=== PATIENT | male | born 1980 | race African-American/Black ===

== ENCOUNTER 2016-10-26 15:58 | Inpatient (IN) | payer OTHER ==
[~2016-10-26] VITALS: Ht 167.6 cm; Wt 65.1 kg
[2016-10-26] MEDS ORDERED: CLINDAMYCIN IV 900 MG in DEXTROSE 5% ADD-VANTAGE 100ML 100 ML IV ONE (16:30)
[2016-10-26] MEDS ORDERED: OPTIRAY 320 IV PRN (16:30)
[2016-10-26] MEDS ORDERED: DOCU100C31 PO (17:04)
[2016-10-26] MEDS ORDERED: NORT50CA PO (17:05)
[2016-10-26 17:34] LABS: BUN/CREATININE RATIO 8.9 (10-20); CALCIUM 9.4 mg/dl (8.5-10.1); POTASSIUM 3.6 mmol/L (3.5-5.1)
[2016-10-26 17:35] LABS: BASO % 0.4 %; BASO ABS # 0.03 K/uL (0-0.2); COMPLETE YES; EOS % 2.8 %; HEMATOCRIT 45.3 % (42-52); IG% 0.1 %; LYMPH % 20.8 %; LYMPH ABS # 1.66 K/uL (1.2-3.4); MEAN CELL VOLUME 85.6 fL (80-100); MEAN CORPUSCULAR HEMOGLOBIN 30.8 pg (25-34); MEAN PLATELET VOLUME 9.6 fL (7.4-10.4); MONO % 7.8 %; NEUT % 68.1 %; PLATELET COUNT 179 K/uL (130-400); RED BLOOD COUNT 5.29 M/uL (4.7-6.1); WHITE BLOOD COUNT 7.99 K/uL (4.8-10.8)
[2016-10-26] MEDS ORDERED: MoRPHine SULFATE 4 MG/ML 1 ML CARP\\VIAL IV STA (18:24)
--- NOTE | 2016-10-26 18:48 | DIAGNOSTIC IMAGING REPORT ---
CT OF THE NECK WITH CONTRAST CT DOSE: 423.66 mGy.cm CLINICAL HISTORY: Mass of the left jaw/floor of mouth. TECHNIQUE: Axial images of the neck were obtained following intravenous injection of 106 cc of Optiray 320 IV. COMPARISON STUDY: None. FINDINGS: Visualized portions of the intracranial contents are unremarkable. Orbits are within normal limits. There is minimal mucosal thickening of the ethmoid sinuses. Mastoid air cells are clear. There is no fluid within the middle ears. The epiglottis is normal. Airway is patent. There is extensive left inferior facial soft tissue swelling and edema, greater on the left. There is skin thickening. Note is made of a 1.6 x 1.3 cm subcutaneous rim-enhancing fluid collection located inferior to the left aspect of the mandible, within the left lower face. A few mildly enlarged submental lymph nodes are noted. No additional fluid collections are identified on this exam. Lung apices are clear. Major vasculature of the neck is patent. There is no soft tissue gas. Incidental note is made of a partially visualized aberrant right subclavian artery. IMPRESSION: 1. Extensive left inferior facial/floor of mouth infiltration with an associated 1.6 x 1.3 cm subcutaneous rim-enhancing fluid collection located inferior to the left aspect of the mandible. This suggests extensive cellulitis with a small associated subcutaneous abscess. The appearance strongly favors an infectious etiology. A necrotic mass could appear similar although is considered less likely. Clinical follow up to ensure resolution following treatment is recommended. 2. Several mildly enlarged submental lymph nodes which are likely reactive. Electronically signed by: Calvin Grijalva M.D. 10/26/2016 6:46 PM Dictated Date/Time: 10/26/2016 6:37 PM
[2016-10-26] MEDS ORDERED: LIDOCAINE/EPINEPHRINE 1% 20 ML VIAL INFIL ONE (20:00)
[2016-10-26] MEDS ORDERED: ONDANSETRON INJ 2 MG/ML 2 ML VIAL IV PRN (20:00)
[2016-10-26] MEDS ORDERED: ALUMINUM/MAGNESIUM/SIMETH (MAALOX MAX) 30 ML UDC PO PRN (20:00)
[2016-10-26] MEDS ORDERED: POLYETHYLENE (MIRALAX) 17 GM PACK PO PRN (20:00)
[2016-10-26] MEDS ORDERED: MAGNESIUM HYDROXIDE SUSP 30 ML UDC PO PRN (20:00)
[2016-10-26] MEDS ORDERED: ZOLPIDEM TARTRATE 5 MG TAB PO PRN (20:00)
[2016-10-26] MEDS ORDERED: ACETAMINOPHEN 325 MG TAB PO PRN (20:00)
[2016-10-26] MEDS ORDERED: TRAMADOL HCL 50 MG TAB PO PRN (20:00)
--- NOTE | 2016-10-26 20:34 | History and Physical ---
History & Physical Date & Time of Service: Oct 26, 2016 at 20:13 Chief Complaint: Edema To The Back Of Head, Jaw Primary Care Physician: Serenity LLANES History of Present Illness 37 y/o M who denies any active medical issues aside from depression, presents for a correction facility with complaints of L sided facial pain. He had a small pimple on the lower L side of his face a few days prior. He developed gradual swelling of his lower jaw, and the L side of his neck. A CT was obtained on arrival to the ER which was significant for extensive facial floor cellulitis with a small associated abscess. He does not currently report fevers or rigors. He denies recent dental carries, fevers or rigors. He has not been able to sleep well as he has a hard time putting his head down without significant pain. Past Medical/Surgical History Depression Family History Father with DM - both parents otherwise alive and well Social History Incarcerated - denies smoking/drinking, drug use. Smoking Status: Never Smoker Allergies Uncoded Allergies: SULFA DRUGS (Allergy, Unknown, UNKNOWN, 10/26/16) Home Medications Scheduled Docusate Sodium (Docusate Sodium), 1 CAP PO HS Nortriptyline (Pamelor), 50 MG PO HS Review of Systems Constitutional: No chills, No fever, No sweats, No weakness Eyes: No eye pain, No worsening of vision ENT: + problem reported (Facial pain as above), No hearing loss, No nasal symptoms, No unusual epistaxis Respiratory: No cough, No sputum, No wheezing Cardiovascular: No PND, No chest pain, No orthopnea Abdomen: No nausea, No vomiting Musculoskeletal: No joint pain Genitourinary - Male: No dysuria, No hematuria Neurologic: No memory loss, No paralysis, No weakness Psychiatric: No anhedonism, No depression symptoms Endocrine: No excessive thirst, No fatigue Hematologic / Lymphatic: No abnormal bleeding/bruising, No clotting problems Integumentary: No rash Allergic / Immunologic: No environmental allergies Physical Exam Vital Signs Date Time Temp Pulse Resp B/P Pulse Ox O2 Delivery O2 Flow Rate FiO2 10/26/16 19:45 80 18 130/87 98 Room Air 10/26/16 18:00 92 16 122/85 97 Room Air 10/26/16 16:01 36.7 100 18 124/86 100 Room Air General Appearance: WD/WN, no apparent distress Head: normocephalic Eyes: normal inspection, PERRL, EOMI ENT: normal ENT inspection, pharynx normal Neck: supple, thyroid normal, no JVD, + adenopathy present, + pertinent finding (Tenderness to palpation on L) Respiratory/Chest: chest non-tender, lungs clear, normal breath sounds, no respiratory distress, no accessory muscle use Cardiovascular: regular rate, rhythm, no edema, no gallop, no JVD, no murmur, normal peripheral pulses Abdomen/GI: normal bowel sounds, non tender, soft Back: normal inspection, no CVA tenderness, no muscle spasm Extremities/Musculoskelatal: normal inspection, no calf tenderness, normal capillary refill, no pedal edema, normal range of motion 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, no motor/sensory deficits, alert, normal mood/affect, normal reflexes, oriented x 3, + abnormal cerebellar tests Skin: + pertinent finding (Erythema over L face) Diagnostics Laboratory Results Results Past 24 Hours Test 10/26/16 16:55 10/26/16 17:00 Range/Units White Blood Count 7.99 4.8-10.8 K/uL Red Blood Count 5.29 4.7-6.1 M/uL Hemoglobin 16.3 14.0-18.0 g/dL Hematocrit 45.3 42-52 % Mean Corpuscular Volume 85.6 80-100 fL Mean Corpuscular Hemoglobin 30.8 25-34 pg Mean Corpuscular Hemoglobin Concent 36.0 32-36 g/dl Platelet Count 179 130-400 K/uL Mean Platelet Volume 9.6 7.4-10.4 fL Neutrophils (%) (Auto) 68.1 % Lymphocytes (%) (Auto) 20.8 % Monocytes (%) (Auto) 7.8 % Eosinophils (%) (Auto) 2.8 % Basophils (%) (Auto) 0.4 % Neutrophils # (Auto) 5.45 1.4-6.5 K/uL Lymphocytes # (Auto) 1.66 1.2-3.4 K/uL Monocytes # (Auto) 0.62 0.11-0.59 K/uL Eosinophils # (Auto) 0.22 0-0.5 K/uL Basophils # (Auto) 0.03 0-0.2 K/uL RDW Standard Deviation 39.2 36.4-46.3 fL RDW Coefficient of Variation 12.4 11.5-14.5 % Immature Granulocyte % (Auto) 0.1 % Immature Granulocyte # (Auto) 0.01 0.00-0.02 K/uL Sodium Level 136 136-145 mmol/L Potassium Level 3.6 3.5-5.1 mmol/L Chloride Level 98 98-107 mmol/L Carbon Dioxide Level 32 21-32 mmol/L Anion Gap 6.0 3-11 mmol/L Blood Urea Nitrogen 9 7-18 mg/dl Creatinine 1.00 0.60-1.40 mg/dl Est Creatinine Clear Calc Drug Dose 93.0 ml/min Estimated GFR () 112.5 Estimated GFR (Non- 97.1 BUN/Creatinine Ratio 8.9 10-20 Random Glucose 93 70-99 mg/dl Calcium Level 9.4 8.5-10.1 mg/dl Total Bilirubin 0.3 0.2-1 mg/dl Aspartate Amino Transf (AST/SGOT) 14 15-37 U/L Alanine Aminotransferase (ALT/SGPT) 15 12-78 U/L Alkaline Phosphatase 129 45-117 U/L Total Protein 8.4 6.4-8.2 gm/dl Albumin 4.3 3.4-5.0 gm/dl Globulin 4.1 2.5-4.0 gm/dl Albumin/Globulin Ratio 1.0 0.9-2 Lactic Acid Level 1.0 0.4-2.0 mmol/L Microbiology Results 10/26/16 Blood Culture, Received Pending 10/26/16 Blood Culture, Received Pending Diagnostic Radiology Extensive left inferior facial/floor of mouth infiltration with an associated 1.6 x 1.3 cm subcutaneous rim-enhancing fluid collection located inferior to the left aspect of the mandible. This suggests extensive cellulitis with a small associated subcutaneous abscess. The appearance strongly favors an infectious etiology. A necrotic mass could appear similar although is considered less likely. Impression Assessment and Plan 37 y/o M who denies any active medical issues aside from depression, presents for a correction facility with complaints of L sided facial pain. He had a small pimple on the lower L side of his face a few days prior. He developed gradual swelling of his lower jaw, and the L side of his neck. A CT was obtained on arrival to the ER which was significant for extensive facial floor cellulitis with a small associated abscess. He does not currently report fevers or rigors. He denies recent dental carries, fevers or rigors. He has not been able to sleep well as he has a hard time putting his head down without significant pain. 1) Cellulitis and abscess - Pt receiving Vanc and Clinda pending Cx results - will likely need drainage - Maxillofacial notified. 2) Depression - Cont Nortriptyline Full Code - SCDs pending surgical eval Total time for this admit including review of labs, records, imaging - discussion with ER attending and pt - 35 min Resuscitation Status FULL RESUSCITATION VTE Prophylaxis VTE Risk Assessment Done? Y/N: Yes Risk Level: Low Given or contraindicated: SCD's Social Service Consult None Apply
--- NOTE | 2016-10-26 20:57 | Medical Consult ---
Consultation Date of Consultation: Oct 26, 2016. Attending Physician: History of Present Illness 37 yo male presents from one of the local prisons with a 4 day history of left submental swelling and pain in his whitt area. States that he was not treated with any medication/antibiotic prior to arrival. ED [facility] did obtain CT neck which I reviewed today and reveals a small (1.5cm) collection in the subcutaneous tissue of the submental region on the left with surrounding inflammatory changes. Denies any dental pain, denies any pain with eating or swelling of the neck with eating. Denies any alleviating or exacerbating factors. CT read by radiology as concern for floor of mouth involvement with the inflammatory changes but I disagree per my read. The fascial planes appear to be intact and not distorted. No fever, no elevated white count on lab testing today. Patient does state that he felt like it was an ingrown hair that became much more swollen over the past couple of days. Social History Smoking Status: Never Smoker Allergies Uncoded Allergies: SULFA DRUGS (Allergy, Unknown, UNKNOWN, 10/26/16) Current Inpatient Medications Current Inpatient Medications Medications (Trade) Dose Ordered Sig/Pranav Route Start Time Stop Time Status Last Admin Dose Admin Ioversol (Optiray 320) 125 ml UD PRN IV 10/26/16 16:30 10/30/16 16:29 Acetaminophen (Tylenol Tab) 650 mg Q4H PRN PO 10/26/16 20:00 11/25/16 19:59 UNV Al Hydrox/Mg Hydrox/Simethicone (Maalox Max Susp) 15 ml Q4H PRN PO 10/26/16 20:00 11/25/16 19:59 UNV Magnesium Hydroxide (Milk Of Magnesia Susp) 30 ml Q6H PRN PO 10/26/16 20:00 11/25/16 19:59 UNV Polyethylene (Miralax Powder Packet) 17 gm DAILY PRN PO 10/26/16 20:00 11/25/16 19:59 UNV Ondansetron HCl 4 mg 4 mg Q6H PRN IV 10/26/16 20:00 11/25/16 19:59 UNV Clindamycin Phosphate 600 mg/ Dextrose 54 ml @ 100 mls/hr Q8H IV 10/26/16 20:00 11/05/16 19:59 UNV Vancomycin HCl/ Sodium Chloride (Vancomycin Inj/ Nss 250ml) 270 ml @ 125 mls/hr Q12 IV 10/26/16 21:00 11/05/16 20:59 UNV Tramadol HCl (Ultram Tab) 50 mg Q4H PRN PO 10/26/16 20:00 11/25/16 19:59 UNV Docusate Sodium (coLACE CAP) 100 mg HS PO 10/26/16 21:00 11/25/16 20:59 UNV Nortriptyline HCl 50 mg 50 mg HS PO 10/26/16 21:00 11/25/16 20:59 UNV Potassium Chloride/Dextrose/ Sod Cl (D5nss + 20meq KCl) 1,000 ml @ 125 mls/hr Q8H IV 10/26/16 20:15 11/25/16 20:14 UNV Review of Systems Constitutional: No chills, No fatigue, No fever, No problem reported, No sweats , No weakness, No weight loss ENT: + problem reported (see HPI) Respiratory: No cough, No dyspnea at rest, No dyspnea on exertion, No hemoptysis, No problem reported, No shortness of breath, No sputum, No wheezing Cardiovascular: No PND, No chest pain, No claudication, No edema, No orthopnea , No palpitations, No problem reported Neurologic: No balance problems, No memory loss, No numbness/tingling, No paralysis, No problem reported, No vertigo, No weakness Integumentary: + problem reported (left neck skin swelling ) Allergic / Immunologic: No environmental allergies, No food allergies, No frequent infections, No hives, No pet sensitivities, No poor healing, No problem reported, No prolonged convalescence, No seasonal allergies Physical Exam Date Time Temp Pulse Resp B/P Pulse Ox O2 Delivery O2 Flow Rate FiO2 10/26/16 19:45 80 18 130/87 98 Room Air 10/26/16 18:00 92 16 122/85 97 Room Air 10/26/16 16:01 36.7 100 18 124/86 100 Room Air PROCEDURE After obtaining informed consent from the patient, time out held and procedure verified. The area that was already spontaneously draining was anesthetized with 1% lidocaine with 1:100,000 epinephrine. After allowing time for local to take affect the area was prepped with ChloraPrep liberally. Then, an 11 blade was used to make a 1 cm incision through the skin and purulence was expressed. Then using blunt hemostat, the abscess cavity was bluntly dissected. Further purulence was expressed. Cultured was obtained. At this point the area was irrigated liberally with saline. Patient tolerated procedure well. General Appearance: WD/WN, no apparent distress Head: normocephalic, atraumatic Eyes: normal inspection, PERRL, EOMI ENT: hearing grossly normal, pharynx normal, + pertinent finding (Floor of mouth is soft and there is no induration, no swelling. Dentition without any tenderness to palpation. ) Neck: + pertinent finding (Left sided submental induration noted. There is some spontaneous drainage noted over the site of pointing of the induration. 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 ) Laboratory Results Last 24 Hours Test 10/26/16 16:55 10/26/16 17:00 White Blood Count 7.99 K/uL Red Blood Count 5.29 M/uL Hemoglobin 16.3 g/dL Hematocrit 45.3 % Mean Corpuscular Volume 85.6 fL Mean Corpuscular Hemoglobin 30.8 pg Mean Corpuscular Hemoglobin Concent 36.0 g/dl Platelet Count 179 K/uL Mean Platelet Volume 9.6 fL Neutrophils (%) (Auto) 68.1 % Lymphocytes (%) (Auto) 20.8 % Monocytes (%) (Auto) 7.8 % Eosinophils (%) (Auto) 2.8 % Basophils (%) (Auto) 0.4 % Neutrophils # (Auto) 5.45 K/uL Lymphocytes # (Auto) 1.66 K/uL Monocytes # (Auto) 0.62 K/uL Eosinophils # (Auto) 0.22 K/uL Basophils # (Auto) 0.03 K/uL RDW Standard Deviation 39.2 fL RDW Coefficient of Variation 12.4 % Immature Granulocyte % (Auto) 0.1 % Immature Granulocyte # (Auto) 0.01 K/uL Sodium Level 136 mmol/L Potassium Level 3.6 mmol/L Chloride Level 98 mmol/L Carbon Dioxide Level 32 mmol/L Anion Gap 6.0 mmol/L Blood Urea Nitrogen 9 mg/dl Creatinine 1.00 mg/dl Est Creatinine Clear Calc Drug Dose 93.0 ml/min Estimated GFR () 112.5 Estimated GFR (Non- 97.1 BUN/Creatinine Ratio 8.9 Random Glucose 93 mg/dl Calcium Level 9.4 mg/dl Total Bilirubin 0.3 mg/dl Aspartate Amino Transf (AST/SGOT) 14 U/L Alanine Aminotransferase (ALT/SGPT) 15 U/L Alkaline Phosphatase 129 U/L Total Protein 8.4 gm/dl Albumin 4.3 gm/dl Globulin 4.1 gm/dl Albumin/Globulin Ratio 1.0 Lactic Acid Level 1.0 mmol/L Assessment & Plan 37 yo male with left sided submental folliculitis, resultant in small subcutaneous abscess and surrounding cellulitis - no floor of mouth involvement clinically - abscess drained easily at bedside - culture obtained - suspect this is staph or strep, possible MRSA (as he is in [facility]) - recommend IV abx therapy per medical service - recommend mupirocin ointment to the incision TID
[2016-10-26] MEDS ORDERED: VANCOMYCIN INJ 1,500 MG in SODIUM CHLORIDE 0.9% 500ML 500 ML IV ONE (21:00)
[2016-10-26] MEDS ORDERED: TRAMADOL HCL 50 MG TAB ONE (21:17)
[2016-10-26 21:23] VITALS: O2SAT 98
[2016-10-26 22:13] VITALS: BP 129/86; PULSE 97; TEMP 36.9; Ht 167.6 cm; Wt 65.1 kg
[2016-10-26] MEDS ORDERED: D5NSS + 20MEQ KCL 1,000 ML IV SCH (22:30)
[2016-10-26] MEDS ORDERED: VANCOMYCIN CONSULT ACTIVE PRN (22:30)
[2016-10-26] MEDS: DOCUSATE SODIUM 100 MG CAP PO SCH (22:52)
[2016-10-26] MEDS: NORTRIPTYLINE HCL 25 MG CAP PO SCH (22:52)
[2016-10-26 23:40] VITALS: BP 128/86; PULSE 90; TEMP 36.8; O2SAT 99
--- NOTE | 2016-10-27 00:47 | EMERGENCY ROOM VISIT NOTE ---
History First contact with patient: 16:06 Chief Complaint: FACIAL PAIN/INJURY Stated Complaint: CELLULITIS AND ABSCESS OF FACE History of Present Illness The patient is a 37 year old male who presents to the Emergency Room from [facility] with complaints of swelling to the left side of the jaw. The patient states that he first developed a lump in the left side of his jaw 3 days ago. He reports it has been gradually increasing in size. He rates his discomfort a 7.5/10 and states it has been difficult to sleep during the pain. He then taken anything for the pain. He denies any injury to the area prior to the onset of the swelling. He denies any fevers/chills. He does report some difficulty swallowing due to the pain. He denies any difficulty opening his mouth. He was on Augmentin a few weeks ago due to an ear infection. Review of Systems A complete 10-point Review of Systems was discussed with the patient, with pertinent positives and negatives listed in the History of Present Illness. All remaining Review of Systems questions can be considered negative unless otherwise specified. Past Medical/Surgical History Medical Problems: (1) Cellulitis and abscess of face Social History Smoking Status: Never Smoker Current/Historical Medications Scheduled Docusate Sodium (Docusate Sodium), 1 CAP PO HS Nortriptyline (Pamelor), 50 MG PO HS Allergies Coded Allergies: Sulfa Antibiotics (Verified Allergy, Unknown, "SULFA DRUGS", 10/26/16) Physical Exam Vital Signs Date Time Temp Pulse Resp B/P Pulse Ox O2 Delivery O2 Flow Rate FiO2 10/26/16 19:45 80 18 130/87 98 Room Air 10/26/16 18:00 92 16 122/85 97 Room Air 10/26/16 16:01 36.7 100 18 124/86 100 Room Air Pain Rating (0-10): 10.0 Physical Exam VITALS: Vitals are noted on the nurse's note and reviewed by myself. Vital signs stable. GENERAL: This is a 36-year-old male, in no acute distress, nondiaphoretic, well- developed well-nourished. SKIN: Capillary reflex less than 2 seconds. HEENT: Normocephalic. PERRLA. EOMI. Nares patent. Mucous membranes moist. There is tenderness of the left floor of the mouth. NECK: There is swelling, erythema and induration of the left mandible which extends to the floor the mouth. HEART: Regular rate and rhythm without murmurs gallops or rubs. LUNGS: Clear to auscultation bilaterally without wheezes, rales or rhonchi. NEURO: Patient was alert and oriented to person place and time. Medical Decision & Procedures ER Provider Diagnostic Interpretation: CT OF THE NECK WITH CONTRAST CT DOSE: 423.66 mGy.cm CLINICAL HISTORY: Mass of the left jaw/floor of mouth. TECHNIQUE: Axial images of the neck were obtained following intravenous injection of 106 cc of Optiray 320 IV. COMPARISON STUDY: None. FINDINGS: Visualized portions of the intracranial contents are unremarkable. Orbits are within normal limits. There is minimal mucosal thickening of the ethmoid sinuses. Mastoid air cells are clear. There is no fluid within the middle ears. The epiglottis is normal. Airway is patent. There is extensive left inferior facial soft tissue swelling and edema, greater on the left. There is skin thickening. Note is made of a 1.6 x 1.3 cm subcutaneous rim-enhancing fluid collection located inferior to the left aspect of the mandible, within the left lower face. A few mildly enlarged submental lymph nodes are noted. No additional fluid collections are identified on this exam. Lung apices are clear. Major vasculature of the neck is patent. There is no soft tissue gas. Incidental note is made of a partially visualized aberrant right subclavian artery. IMPRESSION: 1. Extensive left inferior facial/floor of mouth infiltration with an associated 1.6 x 1.3 cm subcutaneous rim-enhancing fluid collection located inferior to the left aspect of the mandible. This suggests extensive cellulitis with a small associated subcutaneous abscess. The appearance strongly favors an infectious etiology. A necrotic mass could appear similar although is considered less likely. Clinical follow up to ensure resolution following treatment is recommended. 2. Several mildly enlarged submental lymph nodes which are likely reactive. Laboratory Results 10/26/16 16:55 Red Blood Count 5.29, Mean Corpuscular Volume 85.6, Mean Corpuscular Hemoglobin 30.8, Mean Corpuscular Hemoglobin Concent 36.0, Mean Platelet Volume 9.6, Neutrophils (%) (Auto) 68.1, Lymphocytes (%) (Auto) 20.8, Monocytes (%) (Auto) 7.8, Eosinophils (%) (Auto) 2.8, Basophils (%) (Auto) 0.4, Neutrophils # (Auto) 5.45, Lymphocytes # (Auto) 1.66, Monocytes # (Auto) 0.62, Eosinophils # (Auto) 0.22, Basophils # (Auto) 0.03 10/26/16 16:55 Test 10/26/16 16:55 10/26/16 17:00 White Blood Count 7.99 K/uL (4.8-10.8) Red Blood Count 5.29 M/uL (4.7-6.1) Hemoglobin 16.3 g/dL (14.0-18.0) Hematocrit 45.3 % (42-52) Mean Corpuscular Volume 85.6 fL (80-100) Mean Corpuscular Hemoglobin 30.8 pg (25-34) Mean Corpuscular Hemoglobin Concent 36.0 g/dl (32-36) Platelet Count 179 K/uL (130-400) Mean Platelet Volume 9.6 fL (7.4-10.4) Neutrophils (%) (Auto) 68.1 % Lymphocytes (%) (Auto) 20.8 % Monocytes (%) (Auto) 7.8 % Eosinophils (%) (Auto) 2.8 % Basophils (%) (Auto) 0.4 % Neutrophils # (Auto) 5.45 K/uL (1.4-6.5) Lymphocytes # (Auto) 1.66 K/uL (1.2-3.4) Monocytes # (Auto) 0.62 K/uL (0.11-0.59) Eosinophils # (Auto) 0.22 K/uL (0-0.5) Basophils # (Auto) 0.03 K/uL (0-0.2) RDW Standard Deviation 39.2 fL (36.4-46.3) RDW Coefficient of Variation 12.4 % (11.5-14.5) Immature Granulocyte % (Auto) 0.1 % Immature Granulocyte # (Auto) 0.01 K/uL (0.00-0.02) Anion Gap 6.0 mmol/L (3-11) BUN/Creatinine Ratio 8.9 (10-20) Calcium Level 9.4 mg/dl (8.5-10.1) Total Bilirubin 0.3 mg/dl (0.2-1) Aspartate Amino Transf (AST/SGOT) 14 U/L (15-37) Alanine Aminotransferase (ALT/SGPT) 15 U/L (12-78) Alkaline Phosphatase 129 U/L (45-117) Total Protein 8.4 gm/dl (6.4-8.2) Albumin 4.3 gm/dl (3.4-5.0) Globulin 4.1 gm/dl (2.5-4.0) Albumin/Globulin Ratio 1.0 (0.9-2) Lactic Acid Level 1.0 mmol/L (0.4-2.0) Medications Administered Medications (Trade) Dose Ordered Sig/Pranav Route Start Time Stop Time Status Last Admin Dose Admin Clindamycin Phosphate/Dextrose (Cleocin Iv/ Dextrose Add-[place] 100ML) 106 ml @ 100 mls/hr ONE ONCE IV 10/26/16 16:30 10/26/16 17:33 DC 10/26/16 17:34 100 MLS/HR Morphine Sulfate (MoRPHine SULFATE INJ) 4 mg NOW STAT IV 10/26/16 18:24 10/26/16 18:25 DC 10/26/16 18:42 4 MG Medical Decision Differential diagnosis includes abscess, cellulitis, Ludwigs angina, among others. The patient was evaluated as above. Labs were drawn and IV access was obtained. Imaging studies were performed and read by radiology as above. The patient was medicated with a dose of clindamycin. The patient was reassessed multiple times during their stay in the emergency department and remained in stable condition. The patient is a 36-year-old male who presents today complaining of swelling of the left side of the neck. I was concerned due to the patient's tenderness of the floor the mouth. Labs revealed no leukocytosis, anemia or concerning electrolyte abnormalities. Blood cultures were drawn. The patient was given a dose of clindamycin. A CT scan of the soft tissue of the neck was performed and did show a small abscess with extensive surrounding cellulitis. ENT was consulted and Dr. Camarillo did agree to perform I&D. Please see his procedure note. The patient was admitted to the hospitalist service. The patient's case was reviewed with Dr. Virk, ED attending physician, who agreed with my assessment and treatment plan. Impression Primary Impression: Cellulitis and abscess of face Departure Information Dispostion Being Evaluated By Hospitalist Condition GOOD Referrals Serenity LLANES (PCP) Forms HOME CARE DOCUMENTATION FORM, IMPORTANT VISIT INFORMATION Patient Instructions My [facility]
[2016-10-27] MEDS ORDERED: MUPIROCIN 2% OINT 22 GM TUBE EXT ONE (01:30)
[2016-10-27] MEDS: CLINDAMYCIN IV 600 MG in DEXTROSE 5% ADD-VANTAGE 50ML 50 ML IV SCH ×3 (02:05→18:14)
[2016-10-27 03:14] VITALS: BP 117/79; PULSE 92; TEMP 36.9; O2SAT 99
[2016-10-27] MEDS: KETOROLAC TROMETHAMINE 30 MG/ML VIAL IV PRN ×2 (03:43→22:29)
[2016-10-27 06:58] VITALS: BP 118/79; PULSE 79; TEMP 36.7; O2SAT 99
--- NOTE | 2016-10-27 08:08 | Ears,Nose,Throat Progress Note ---
Progress Note Date of Service Oct 27, 2016. Subjective Pt evaluation today including: conversation w/ patient, physical exam, chart review, lab review, review of studies Patient s/p bedside incision and drainage of left subcutaneous abscess from folliculitis. Did well overnight. States that he is feeling much better. Pain and pressure has markedly improved after drainage. Objective Vital Signs Date Time Temp Pulse Resp B/P Pulse Ox O2 Delivery O2 Flow Rate FiO2 10/27/16 06:58 36.7 79 16 118/79 99 Room Air 10/27/16 03:14 36.9 92 17 117/79 99 Room Air 10/27/16 00:20 Room Air 10/26/16 23:40 36.8 90 17 128/86 99 Room Air 10/26/16 22:13 36.9 97 16 129/86 Room Air 10/26/16 21:23 80 18 127/99 98 10/26/16 19:45 80 18 130/87 98 Room Air 10/26/16 18:00 92 16 122/85 97 Room Air 10/26/16 16:01 36.7 100 18 124/86 100 Room Air Physical Exam General Appearance: WD/WN, no apparent distress Eyes: EOMI ENT: normal ENT inspection, pharynx normal Neck: + pertinent finding (Left neck abscess drainage site with some scant drainage this am on the dressing, some further drainage expressed at bedside. New dressing applied. ) Lymphatic: + pertinent finding (submental adenopathy present) Laboratory Results Last 24 Hours Test 10/26/16 16:55 10/26/16 17:00 White Blood Count 7.99 K/uL Red Blood Count 5.29 M/uL Hemoglobin 16.3 g/dL Hematocrit 45.3 % Mean Corpuscular Volume 85.6 fL Mean Corpuscular Hemoglobin 30.8 pg Mean Corpuscular Hemoglobin Concent 36.0 g/dl Platelet Count 179 K/uL Mean Platelet Volume 9.6 fL Neutrophils (%) (Auto) 68.1 % Lymphocytes (%) (Auto) 20.8 % Monocytes (%) (Auto) 7.8 % Eosinophils (%) (Auto) 2.8 % Basophils (%) (Auto) 0.4 % Neutrophils # (Auto) 5.45 K/uL Lymphocytes # (Auto) 1.66 K/uL Monocytes # (Auto) 0.62 K/uL Eosinophils # (Auto) 0.22 K/uL Basophils # (Auto) 0.03 K/uL RDW Standard Deviation 39.2 fL RDW Coefficient of Variation 12.4 % Immature Granulocyte % (Auto) 0.1 % Immature Granulocyte # (Auto) 0.01 K/uL Sodium Level 136 mmol/L Potassium Level 3.6 mmol/L Chloride Level 98 mmol/L Carbon Dioxide Level 32 mmol/L Anion Gap 6.0 mmol/L Blood Urea Nitrogen 9 mg/dl Creatinine 1.00 mg/dl Est Creatinine Clear Calc Drug Dose 93.0 ml/min Estimated GFR () 112.5 Estimated GFR (Non- 97.1 BUN/Creatinine Ratio 8.9 Random Glucose 93 mg/dl Calcium Level 9.4 mg/dl Total Bilirubin 0.3 mg/dl Aspartate Amino Transf (AST/SGOT) 14 U/L Alanine Aminotransferase (ALT/SGPT) 15 U/L Alkaline Phosphatase 129 U/L Total Protein 8.4 gm/dl Albumin 4.3 gm/dl Globulin 4.1 gm/dl Albumin/Globulin Ratio 1.0 Lactic Acid Level 1.0 mmol/L Assessment and Plan 37 yo male with left sided submental folliculitis, resultant in small subcutaneous abscess and surrounding cellulitis - did well overnight - much improved pain and pressure per patient report - suspect this is staph or strep, possible MRSA (as he is in assisted) - recommend IV abx therapy per medical service - recommend mupirocin ointment to the incision TID
[2016-10-27] MEDS: VANCOMYCIN INJ 1,000 MG in SODIUM CHLORIDE 0.9% 250ML 250 ML IV SCH ×2 (08:13→19:13)
[2016-10-27] MEDS: MUPIROCIN 2% OINT 22 GM TUBE EXT SCH ×3 (09:30→21:00)
--- NOTE | 2016-10-27 10:22 | Progress Note ---
Subjective Date of Service: Oct 27, 2016. Subjective Pt evaluation today including: conversation w/ patient, physical exam, chart review, lab review, review of inpatient medication list Patient admitted overnight with submental abscess s/p drainage. No new complaints. Otherwise, no chest pain, no sob, good appetite. Review of Systems All Other Systems: Reviewed and Negative Medications Acetaminophen (Tylenol Tab) 650 mg Q4H PRN PO; Start 10/26/16 at 20:00; Stop 11/25/16 at 19:59 Al Hydrox/Mg Hydrox/Simethicone (Maalox Max Susp) 15 ml Q4H PRN PO; Start 10/26 at 20:00; Stop 11/25/16 at 19:59 Clindamycin Phosphate/Dextrose (Cleocin Iv/ Dextrose Add-[place] 50ML) 54 ml @ 100 mls/hr Q8H IV Last administered on 10/27/16 10:33; Admin Dose 100 MLS/HR; Start 10/27/16 at 02:00; Stop 11/05/16 at 17:59 Docusate Sodium (coLACE CAP) 100 mg HS PO Last administered on 10/26/16 22:52; Admin Dose 100 MG; Start 10/26/16 at 21:00; Stop 11/25/16 at 20:59 Ioversol (Optiray 320) 125 ml UD PRN IV; Start 10/26/16 at 16:30; Stop 10/30/16 at 16:29 Ketorolac Tromethamine 30 mg 30 mg Q6H PRN IV Last administered on 10/27/16 03 :43; Admin Dose 30 MG; Start 10/27/16 at 02:15; Stop 11/01/16 at 02:14 Magnesium Hydroxide (Milk Of Magnesia Susp) 30 ml Q6H PRN PO; Start 10/26/16 at 20:00; Stop 11/25/16 at 19:59 Mupirocin (Bactroban 2% Oint) 1 appln TID EXT Last administered on 10/27/16 14: 00; Admin Dose 1 APPLN; Start 10/27/16 at 09:00; Stop 11/26/16 at 08:59 Nortriptyline HCl (Pamelor Cap) 50 mg HS PO Last administered on 10/26/16 22:52 ; Admin Dose 50 MG; Start 10/26/16 at 21:00; Stop 11/25/16 at 20:59 Ondansetron HCl 4 mg 4 mg Q6H PRN IV; Start 10/26/16 at 20:00; Stop 11/25/16 at 19:59 Polyethylene (Miralax Powder Packet) 17 gm DAILY PRN PO; Start 10/26/16 at 20: 00; Stop 11/25/16 at 19:59 Tramadol HCl (Ultram Tab) 50 mg Q4H PRN PO; Start 10/26/16 at 20:00; Stop 11/25 at 19:59 Vancomycin HCl (Consult) 1 ea UD PRN N/A; Start 10/26/16 at 22:30; Stop at 22:29 Vancomycin HCl/ Sodium Chloride (Vancomycin Inj/ Nss 250ml) 270 ml @ 125 mls/ hr Q10H IV Last administered on 10/27/16t 08:13; Admin Dose 125 MLS/HR; Start at 08:00; Stop 11/06/16 at 07:59 Objective Vital Signs Date Time Temp Pulse Resp B/P Pulse Ox O2 Delivery O2 Flow Rate FiO2 10/27/16 06:58 36.7 79 16 118/79 99 Room Air 10/27/16 03:14 36.9 92 17 117/79 99 Room Air 10/27/16 00:20 Room Air 10/26/16 23:40 36.8 90 17 128/86 99 Room Air 10/26/16 22:13 36.9 97 16 129/86 Room Air 10/26/16 21:23 80 18 127/99 98 10/26/16 19:45 80 18 130/87 98 Room Air 10/26/16 18:00 92 16 122/85 97 Room Air 10/26/16 16:01 36.7 100 18 124/86 100 Room Air Physical Exam Comments: nad, aox3 eomi, perrl, anicteric s1 s2 rrr, no murmurs appreciated ctab no w/r/r abd soft nt/nd +BS no LE edema cn 2-12 grossly intact left jaw dressed Laboratory Results Last 24 Hours Test 10/26/16 16:55 10/26/16 17:00 White Blood Count 7.99 K/uL Red Blood Count 5.29 M/uL Hemoglobin 16.3 g/dL Hematocrit 45.3 % Mean Corpuscular Volume 85.6 fL Mean Corpuscular Hemoglobin 30.8 pg Mean Corpuscular Hemoglobin Concent 36.0 g/dl Platelet Count 179 K/uL Mean Platelet Volume 9.6 fL Neutrophils (%) (Auto) 68.1 % Lymphocytes (%) (Auto) 20.8 % Monocytes (%) (Auto) 7.8 % Eosinophils (%) (Auto) 2.8 % Basophils (%) (Auto) 0.4 % Neutrophils # (Auto) 5.45 K/uL Lymphocytes # (Auto) 1.66 K/uL Monocytes # (Auto) 0.62 K/uL Eosinophils # (Auto) 0.22 K/uL Basophils # (Auto) 0.03 K/uL RDW Standard Deviation 39.2 fL RDW Coefficient of Variation 12.4 % Immature Granulocyte % (Auto) 0.1 % Immature Granulocyte # (Auto) 0.01 K/uL Sodium Level 136 mmol/L Potassium Level 3.6 mmol/L Chloride Level 98 mmol/L Carbon Dioxide Level 32 mmol/L Anion Gap 6.0 mmol/L Blood Urea Nitrogen 9 mg/dl Creatinine 1.00 mg/dl Est Creatinine Clear Calc Drug Dose 93.0 ml/min Estimated GFR () 112.5 Estimated GFR (Non- 97.1 BUN/Creatinine Ratio 8.9 Random Glucose 93 mg/dl Calcium Level 9.4 mg/dl Total Bilirubin 0.3 mg/dl Aspartate Amino Transf (AST/SGOT) 14 U/L Alanine Aminotransferase (ALT/SGPT) 15 U/L Alkaline Phosphatase 129 U/L Total Protein 8.4 gm/dl Albumin 4.3 gm/dl Globulin 4.1 gm/dl Albumin/Globulin Ratio 1.0 Lactic Acid Level 1.0 mmol/L Assessment and Plan 1. Left submental abscess - s/p drainage - appreciate OMFS - cont vanco and clinda pending cultures - pain regimen as needed 2. depression - cont nortriptyline 3. dvt ppx with lovenox
--- NOTE | 2016-10-27 11:34 | Pharmacy Progress Note ---
Pharmacy Antibiotic Consult Date of Service: Oct 27, 2016. Pharmacy Dosing Scope Pharmacy is consulted to initiate vancomycin IV dosing therapy, order appropriate labs and adjust drug dose/frequency. Subjective The patient is a 36 year old male admitted on Oct 26, 2016 at 20:00 with a cellulitis in his neck area. It was drained yesterday by ENT physician and was very purulent. Gram stain and culture was obtained. Objective Height (Feet): 5 Height (Inches): 6.00 Weight (Kilograms): 65.100 Lab Results (24hrs): Laboratory Tests Test 10/26/16 16:55 BUN/Creatinine Ratio 8.9 Blood Urea Nitrogen 9 mg/dl Creatinine 1.00 mg/dl White Blood Count 7.99 K/uL Red Blood Count 5.29 M/uL Hemoglobin 16.3 g/dL Hematocrit 45.3 % Mean Corpuscular Volume 85.6 fL Mean Corpuscular Hemoglobin 30.8 pg Mean Corpuscular Hemoglobin Concent 36.0 g/dl Platelet Count 179 K/uL Mean Platelet Volume 9.6 fL Neutrophils (%) (Auto) 68.1 % Lymphocytes (%) (Auto) 20.8 % Monocytes (%) (Auto) 7.8 % Eosinophils (%) (Auto) 2.8 % Basophils (%) (Auto) 0.4 % Neutrophils # (Auto) 5.45 K/uL Lymphocytes # (Auto) 1.66 K/uL Monocytes # (Auto) 0.62 K/uL Eosinophils # (Auto) 0.22 K/uL Basophils # (Auto) 0.03 K/uL Assessment & Plan PLEASE NOTE THIS PLAN WAS DEVELOPED BY THIRD SHIFT PHARMACIST. I am documenting their plan. I do agree with the plan. Loading dose: vancomycin 1500 mg IV X 1 dose then: vancomycin 1000 mg IV every 10 hours (population pharmacokinetics suggest a half-life of 8.66 hours with an elimination constant of 0.08 hr-1). Goal peak level estimate: between 35 - 40 mcg/mL. Goal trough level estimate: between 15 - 20 mcg/mL (Indication: cellulitis however there is concern for MRSA due to fpc and nasal MRSA swab was positive ). Trough has been ordered for: prior to 4 am dose. CLINDAMYCIN: This is appropriate for 3 days for anti-toxin effects. May be continued for short course but give serious consideration to discontinuation once cultures obtained. Pharmacy will continue to follow and will adjust dose/frequency as necessary. Thank you
[2016-10-27 12:23] VITALS: BP 136/85; PULSE 83; TEMP 36.6; O2SAT 99
[2016-10-27 15:11] VITALS: BP 118/79; PULSE 90; TEMP 36.7; O2SAT 100
[2016-10-27 19:08] VITALS: BP 122/77; PULSE 98; TEMP 37; O2SAT 99
[2016-10-27 19:13] LABS: INR 1.1 (0.9-1.1); PROTHROMBIN TIME (PATIENT) 11.6 SECONDS (9.0-12.0)
[2016-10-27] MEDS: DOCUSATE SODIUM 100 MG CAP PO SCH (21:01)
[2016-10-27] MEDS: NORTRIPTYLINE HCL 25 MG CAP PO SCH (21:01)
[2016-10-27 23:50] VITALS: BP 138/90; PULSE 86; TEMP 37; O2SAT 98
[2016-10-28] MEDS: CLINDAMYCIN IV 600 MG in DEXTROSE 5% ADD-VANTAGE 50ML 50 ML IV SCH ×2 (01:54→10:24)
[2016-10-28] MEDS ORDERED: VANCOMYCIN TROUGH SCH (03:30)
[2016-10-28] MEDS: VANCOMYCIN INJ 1,000 MG in SODIUM CHLORIDE 0.9% 250ML 250 ML IV SCH ×3 (04:04→18:37)
[2016-10-28 04:24] LABS: CREATININE 1.1 mg/dl (0.60-1.40)
[2016-10-28 07:03] VITALS: BP 122/80; PULSE 81; TEMP 36.8; O2SAT 100
[2016-10-28] MEDS: MUPIROCIN 2% OINT 22 GM TUBE EXT SCH ×3 (08:20→21:12)
--- NOTE | 2016-10-28 09:38 | Pharmacy Progress Note ---
Pharmacy Antibiotic Prog Note Date of Service: Oct 28, 2016. Subjective: The patient is currently receiving vancomycin 1000 mg IV every 10 hours. The patient is currently on day # 3 of IV therapy. Objective: Height (Feet): 5 Height (Inches): 6.00 Weight (Kilograms): 65.100 Levels: Item Value Date Time Vancomycin Level Trough 13.6 mcg/ml 10/28/16 0400 Lab Results (24hrs): Laboratory Tests Test 10/28/16 04:00 Creatinine 1.10 mg/dl Micro Results: RUN DATE: 10/28/16 [facility] LAB PAGE 1 RUN TIME: 0830 Specimen Inquiry PATIENT: BRONWYN HERNANDES [id number] LOC: ADY U # : [id number] AGE/SX: 36/M ROOM: [facility] REG : 10/26/[address]: Erich Flores MD : 1980 BED: 2 DIS : STATUS: ADM IN TLOC: SPEC #: [id number] CLIF: 10/26/16-UNK STATUS: RES REQ #: [id number] RECD: 10/27/[address] [facility] [address]: Bert Camarillo D.O. SOURCE: ABSCESS ENTR: 10/27/16 [facility] DR: Erich Flores MD [facility] ORDERED: AER/MICHELLE CULTSMR COMMENTS: Has Specimen Been Obtained/Collected? Y Procedure Result Verified Site GRAM STAIN Final 10/27/16-1338 RESULT MODERATE POLYS MODERATE GRAM POSITIVE COCCI OR AER/MICHELLE CULT Preliminary 10/28/16 Organism 1 STAPHYLOCOCCUS AUREUS QUANITY MANY SENS SENSITIVITY TO FOLLOW RUN DATE: 10/27/16 [facility] LAB PAGE 1 RUN TIME: 4 Specimen Inquiry PATIENT: BRONWYN HERNANDES [id number] LOC: ADY U # : [id number] AGE/SX: 37/M ROOM: [facility] REG : 10/26/[address]: Erich Flores MD : 09/15/1979 BED: 2 DIS : STATUS: ADM IN TLOC: SPEC #: [id number] CLIF: 10/26/16 STATUS: COMP REQ #: [id number] RECD: 10/26/[address] [facility] [address]: Erich Flores MD SOURCE: NASAL ENTR: 10/26/16 [facility] DR: Bert Camarillo D.O. [facility]: [facility] ORDERED: MRSA DNA COMMENTS: Has Specimen Been Obtained/Collected? Y Procedure Result Verified Site MRSA DNA (NASAL SWAB) Final 10/27/16-4 Specimen Positive for MRSA by DNA Probe Phoned results to FLAQUITA ZHANG on 10/27/16 at 0003 by Inge Pradhan. Results were verbalized back to ALE. Recent Pertinent Medications: Item Value Date Time Clindamycin 54 ml @ 100 mls/hr 10/27/16 0200 Phosphate 600 mg/ Q8H/IV 10/28/16 0154 Dextrose Assessment & Plan: Mr Hernandes's laboratory values and vital signs are currently stable. His MRSA swab is positive (meaning he is colonized with MRSA) and S aureus is growing in his wound culture. There is a strong possibility this is MRSA in his wound culture therefore increased vancomycin dose. This drug level is: Subtherapeutic Change to vancomycin 1000 mg IV every 8 hours (this represents a 25% increase which I feel is appropriate to achieve a trough of 17 mcg/mL). Goal peak level estimate: between 35 - 40 mcg/mL. Goal trough level estimate: between 15 - 20 mcg/mL (due to possibility of this being a MRSA cellulitis). Trough has been ordered for: prior to the 10 AM dose. Pharmacy will continue to follow and will adjust dose/frequency as necessary. Thank you
[2016-10-28] MEDS: ENOXAPARIN 30 MG/0.3 ML SYR SQ SCH (10:19)
[2016-10-28] MEDS: KETOROLAC TROMETHAMINE 30 MG/ML VIAL IV PRN ×2 (10:37→23:44)
--- NOTE | 2016-10-28 11:31 | Progress Note ---
Subjective Date of Service: Oct 28, 2016. Subjective Pt evaluation today including: conversation w/ patient, physical exam, lab review, review of studies, review of inpatient medication list Patient without any new complaints. No sob, no trouble breathing. No jaw pain. GOod appetite. Review of Systems All Other Systems: Reviewed and Negative Medications Acetaminophen (Tylenol Tab) 650 mg Q4H PRN PO; Start 10/26/16 at 20:00; Stop 11/25/16 at 19:59 Al Hydrox/Mg Hydrox/Simethicone (Maalox Max Susp) 15 ml Q4H PRN PO; Start 10/26 at 20:00; Stop 11/25/16 at 19:59 Docusate Sodium (coLACE CAP) 100 mg HS PO Last administered on 10/27/16 21:01; Admin Dose 100 MG; Start 10/26/16 at 21:00; Stop 11/25/16 at 20:59 Enoxaparin Sodium 30 mg 30 mg QAM SQ Last administered on 10/28/16 10:19; Admin Dose 30 MG; Start 10/28/16 at 09:00; Stop 11/27/16 at 08:59 Ioversol (Optiray 320) 125 ml UD PRN IV; Start 10/26/16 at 16:30; Stop 10/30/16 at 16:29 Ketorolac Tromethamine (Toradol Inj) 30 mg Q6H PRN IV Last administered on 10:37; Admin Dose 30 MG; Start 10/27/16 at 02:15; Stop 11/01/16 at 02:14 Magnesium Hydroxide (Milk Of Magnesia Susp) 30 ml Q6H PRN PO; Start 10/26/16 at 20:00; Stop 11/25/16 at 19:59 Mupirocin (Bactroban 2% Oint) 1 appln TID EXT Last administered on 10/28/16 08: 20; Admin Dose 1 APPLN; Start 10/27/16 at 09:00; Stop 11/26/16 at 08:59 Nortriptyline HCl (Pamelor Cap) 50 mg HS PO Last administered on 10/27/16 21:01 ; Admin Dose 50 MG; Start 10/26/16 at 21:00; Stop 11/25/16 at 20:59 Ondansetron HCl (Zofran Inj) 4 mg Q6H PRN IV; Start 10/26/16 at 20:00; Stop at 19:59 Polyethylene (Miralax Powder Packet) 17 gm DAILY PRN PO; Start 10/26/16 at 20: 00; Stop 11/25/16 at 19:59 Tramadol HCl (Ultram Tab) 50 mg Q4H PRN PO; Start 10/26/16 at 20:00; Stop 11/25 at 19:59 Vancomycin HCl (Consult) 1 ea UD PRN N/A; Start 10/26/16 at 22:30; Stop at 22:29 Vancomycin HCl/ Sodium Chloride (Vancomycin Inj/ Nss 250ml) 270 ml @ 125 mls/ hr Q8H IV Last administered on 10/28/16t 10:19; Admin Dose 125 MLS/HR; Start 10/28 at 10:00; Stop 11/06/16 at 07:59 Objective Vital Signs Date Time Temp Pulse Resp B/P Pulse Ox O2 Delivery O2 Flow Rate FiO2 10/28/16 07:03 36.8 81 16 122/80 100 Room Air 10/28/16 00:15 Room Air 10/27/16 23:50 37.0 86 18 138/90 98 Room Air 10/27/16 19:08 37.0 98 18 122/77 99 Room Air 10/27/16 16:30 Room Air 10/27/16 15:11 36.7 90 18 118/79 100 Room Air 10/27/16 12:23 36.6 83 16 136/85 99 Room Air Physical Exam Comments: nad, aox3 eomi, perrl s1 s2 rrr, no murmurs appreciated ctab no w/r/r abd soft ,nt /nd +BS no LE edema cn 2-12 grossly in tact Laboratory Results Last 24 Hours Test 10/27/16 18:50 10/28/16 04:00 Prothrombin Time 11.6 SECONDS Prothromb Time International Ratio 1.1 Creatinine 1.10 mg/dl Est Creatinine Clear Calc Drug Dose 85.3 ml/min Estimated GFR () 101.0 Estimated GFR (Non- 87.1 Vancomycin Level Trough 13.6 mcg/ml SPEC #: [id number] CLIF: 10/26/16-UNK STATUS: RES REQ #: [id number] RECD: 10/27/16-1106 [facility] DR: Bert Camarillo D.O. SOURCE: ABSCESS ENTR: 10/27/[address]: Erich Flores MD SPDES: NECK-LEFT SCI, [facility] ORDERED: AER/MICHELLE CULTSMR COMMENTS: Has Specimen Been Obtained/Collected? Y Procedure Result Verified Site GRAM STAIN Final 10/27/16-1330 RESULT MODERATE POLYS MODERATE GRAM POSITIVE COCCI OR AER/MICHELLE CULT Preliminary 10/28/16-1117 Organism 1 STAPHYLOCOCCUS AUREUS QUANITY MANY SENS SENSITIVITY TO FOLLOW Assessment and Plan 1. Left submental abscess - s/p drainage - appreciate OMFS - cont vanco, stop clinda, awaiting final cultures - pain regimen as needed 2. depression - cont nortriptyline 3. dvt ppx with lovenox
[2016-10-28 15:30] VITALS: BP 132/89; PULSE 88; TEMP 36.5; O2SAT 99
[2016-10-28] MEDS: DOCUSATE SODIUM 100 MG CAP PO SCH (21:13)
[2016-10-28] MEDS: NORTRIPTYLINE HCL 25 MG CAP PO SCH (21:13)
[2016-10-28 23:29] VITALS: BP 136/89; PULSE 75; TEMP 36.9; O2SAT 98
[2016-10-29] MEDS: VANCOMYCIN INJ 1,000 MG in SODIUM CHLORIDE 0.9% 250ML 250 ML IV SCH ×2 (01:49→09:56)
[2016-10-29 06:55] LABS: CREATININE 1.1 mg/dl (0.60-1.40)
[2016-10-29 07:06] VITALS: BP 136/91; PULSE 71; TEMP 36.6; O2SAT 99
[2016-10-29] MEDS ORDERED: VANCOMYCIN TROUGH SCH (09:30)
[2016-10-29] MEDS: MUPIROCIN 2% OINT 22 GM TUBE EXT SCH ×2 (09:55→13:01)
[2016-10-29] MEDS: ENOXAPARIN 30 MG/0.3 ML SYR SQ SCH (09:56)
--- NOTE | 2016-10-29 11:11 | Discharge Summary ---
Discharge Summary Date of Service Oct 29, 2016. Discharge Summary Admission Date: Oct 26, 2016 at 20:00 Discharge Date: Oct 29, 2016 Principal Diagnosis: submental abscess mrsa Procedures: SPEC #: [id number] CLIF: 10/26/16-UNK STATUS: RES REQ #: [id number] RECD: 10/27/16-[address]: Bert Camarillo D.O. SOURCE: ABSCESS ENTR: 10/27/16-[address]: Erich Flores MD [facility]: NECK-LEFT [facility] ORDERED: AER/MICHELLE CULTSMR COMMENTS: Has Specimen Been Obtained/Collected? Y Procedure Result Verified Site GRAM STAIN Final 10/27/16-1338 RESULT MODERATE POLYS MODERATE GRAM POSITIVE COCCI OR AER/MICHELLE CULT Preliminary 10/29/16-40 Organism 1 STAPHYLOCOCCUS AUREUS QUANITY MANY SENS SENSITIVITY TO FOLLOW SENSITIVITY RESULT INDICATES A METHICILLIN RESISTANT STAPH. AUREUS. PHONED TO [address] [place] [address] (MARCO WERNER) ON 10/29/16 AT 0744 BY Zheng Calvillo. Results were verbalized back to JASSI. RESULTS WERE ALSO CALLED TO [facility] INFECTION CONTROL ANSWERING MACHINE ON 10/29/16 BY JASSI. 1. STAPHYLOCOCCUS AUREUS Target Route Dose RX AB Cost M.I.C. IQ ------ ----- ------ -- ------ -------- - ------ TRIMET/SULFA S <=0.5/ 9.5 * OXACILLIN R * >2 VANCOMYCIN S 2 ERYTHROMYCIN R >4 TETRACYCLINE S <=4 CLINDAMYCIN S <=0.5 DAPTOMYCIN S <=0.5 RIFAMPIN S <=1 S = SENSITIVE I = INTERMEDIATE R = RESISTANT END OF REPORT Medication Reconciliation New Medications: Clindamycin HCl (Clindamycin HCl) 150 Mg Cap 450 MG PO TID for 8 Days, #72 CAP Mupirocin (Mupirocin) 66 Appln/22 Gm Oint 1 APPLN EXT TID for 15 Days Continued Medications: Docusate Sodium (Docusate Sodium) 100 Mg Cap 1 CAP PO HS, CAP Nortriptyline (Pamelor) 50 Mg Cap 50 MG PO HS, CAP Hospital Course 37 y/o M who denies any active medical issues aside from depression, presents for a correction facility with complaints of L sided facial pain. He had a small pimple on the lower L side of his face a few days prior. He developed gradual swelling of his lower jaw, and the L side of his neck. A CT was obtained on arrival to the ER which was significant for extensive facial floor cellulitis with a small associated abscess. He does not currently report fevers or rigors. He denies recent dental carries, fevers or rigors. He has not been able to sleep well as he has a hard time putting his head down without significant pain. Patient had drainage of the abscess by OMFS and cultures were obtained. Patient was placed on vanco and clinda, clinda stopped while waiting for cultures. Cultures did come back MRSA positive, sensitive to clinda. ANtibiotic switched to clindamycin and will be continued until 11/04/16 for a total of 10 days. On day of discharge, patient afebrile. No jaw pain. No new complaints. Vital Signs Date Time Temp Pulse Resp B/P Pulse Ox O2 Delivery O2 Flow Rate FiO2 10/29/16 11:38 36.6 71 15 99 Room Air 10/29/16 07:06 136/91 nad, aox3 eomi, perrl s1 s2 rrr , no murmurs ctab no w/r/r abd soft nt /nd +BS no LE edema cn 2-12 grossly intact 1. Left submental abscess - s/p drainage - appreciate OMFS - discharge on clindamycin 450 mg tid until 11/04/16 for total of 10-day course - mupirocin ointment locally 2. depression - cont nortriptyline 3. dvt ppx with lovenox Total Time Spent: Less than 30 minutes This includes examination of the patient, discharge planning, medication reconciliation, and communication with other providers. Discharge Instructions Please refer to the electronic Patient Visit Report (Discharge Instructions) for additional information.
[2016-10-29] MEDS ORDERED: BCTRO EXT (11:13)
[2016-10-29] MEDS ORDERED: CLC150 PO (11:13)
--- NOTE | 2016-10-29 11:14 | Discharge Instructions ---
Discharge Instructions Admission Reason for Admission: Cellulitis And Abscess Of Face Discharge Discharge Diagnosis / Problem: stable for transfer back to correctional facility Discharge Goals Goal(s): Decrease discomfort Activity Recommendations Activity Limitations: resume your previous activity . Current Hospital Diet Patient's current hospital diet: Regular Diet Discharge Diet Recommended Diet: Regular Diet Pending Studies Studies pending at discharge: no Medical Emergencies . Who to Call and When: Medical Emergencies: If at any time you feel your situation is an emergency, please call 911 immediately. . Non-Emergent Contact Non-Emergency issues call your: Primary Care Provider . . "Provider Documentation" section prepared by Marlene Leal. VTE Core Measure Inpt VTE Proph given/why not?: SCD's
[2016-10-29 11:38] VITALS: BP 136/91; PULSE 71; TEMP 36.6; O2SAT 99
[2016-10-29] MEDS ORDERED: CLINDAMYCIN HCL 150 MG CAP PO SCH (14:00)
== END 2016-10-29 13:55 | DRG 603 ==
LOC: ENRESERVTM → ENRESERVDT → EDBD → C.EDB 16:02 → EDBD 20:00 → C.MSN 20:00 → EDBEDREQ 20:23
PROVIDERS: ADMIT Internal Medicine; ATTEND Internal Medicine
PROC: 0H91XZZ Drainage of Face Skin, External Approach (ICD-10-PCS; principal; 2016-10-26)
DX: L02.01 Cutaneous abscess of face (principal); L03.211 Cellulitis of face; L73.9 Follicular disorder, unspecified; B95.62 Methicillin resistant Staphylococcus aureus infection as the cause of diseases classified elsewhere; F32.9 Major depressive disorder, single episode, unspecified; Z79.899 Other long term (current) drug therapy